=== PATIENT | female | born 1975 | race Caucasian/White ===

== ENCOUNTER → 2022-11-05 | Outpatient (REF) | payer OTHER ==
--- NOTE | 2022-11-05 11:10 | Diagnostic Imaging Report ---
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 Pre-occupational exam. EXAM: Chest x-ray PA and lateral views. COMPARISON: None. FINDINGS: Lungs/pleura: Lungs are clear. There is no pneumothorax. There is no pleural effusion. Mediastinum: Unremarkable. Pulmonary vasculature: Unremarkable. Heart: Unremarkable. Bones/extrathoracic soft tissue: There are small degenerative spurs involving the thoracic spine. IMPRESSION: Lungs are clear. There is no radiographic evidence of acute cardiopulmonary process. Results of this report was called to Lilia, registered nurse in occupational medicine, via the telephone on 11/05/2022 at 1105 hours. Dictated by: Dictated on workstation # [id number]
== END ==
LOC: RAD 08:46
DX: R76.11 Nonspecific reaction to tuberculin skin test without active tuberculosis (principal)
CPT/HCPCS: 71046